=== PATIENT | male | born 1990 | race African-American/Black ===

== ENCOUNTER 2023-05-17 18:23 | Emergency (ER) | payer MEDICAID ==
[~2023-05-17] VITALS: Ht 180.3 cm; Wt 109.0 kg
[2023-05-17 18:43] VITALS: BP 122/80; PULSE 97; RESP 18; TEMP 98.5; O2SAT 99
[2023-05-17] MEDS ORDERED: BO1 TP (19:32)
== END 2023-05-17 19:39 | disposition home or self-care (01) ==
LOC: ER 18:40
DX: S01.81XA Laceration without foreign body of other part of head, initial encounter (principal); X99.1XXA Assault by knife, initial encounter; Y93.89 Activity, other specified; Y92.89 Other specified places as the place of occurrence of the external cause; Y99.8 Other external cause status
CPT/HCPCS: 12011; 99282

== ENCOUNTER 2023-09-12 14:09 | Emergency (ER) | payer MEDICAID ==
[~2023-09-12] VITALS: Ht 182.9 cm; Wt 116.0 kg
[~2023-09-12 14:09] MED LIST: BO1 TP
[2023-09-12 14:17] VITALS: O2SAT 100
[2023-09-12] MEDS: ACETAMINOPHEN 325MG TABLET PO ONE (15:34)
[2023-09-12 16:34] VITALS: BP 142/71; PULSE 83; RESP 18; TEMP 98.1
[2023-09-12] MEDS: BACITRACIN ZINC OINT UDPKT TOP ONE (16:40)
== END 2023-09-12 16:34 | disposition home or self-care (01) ==
LOC: ER 14:09
DX: S02.2XXA Fracture of nasal bones, initial encounter for closed fracture (principal); S01.112A Laceration without foreign body of left eyelid and periocular area, initial encounter; Y04.0XXA Assault by unarmed brawl or fight, initial encounter; Y93.89 Activity, other specified; Y92.89 Other specified places as the place of occurrence of the external cause; Y99.8 Other external cause status
CPT/HCPCS: 70450; 70486; 12013; 99284; Z7610

== ENCOUNTER 2023-10-04 10:28 | Emergency (ER) | payer MEDICAID ==
[~2023-10-04] VITALS: Ht 177.8 cm; Wt 102.0 kg
[2023-10-04 10:37] VITALS: BP 116/82; PULSE 69; RESP 18; TEMP 98.4; O2SAT 99
== END 2023-10-04 11:04 | disposition home or self-care (01) ==
LOC: ER 10:31
DX: S01.81XD Laceration without foreign body of other part of head, subsequent encounter (principal); X58.XXXD Exposure to other specified factors, subsequent encounter
CPT/HCPCS: 99281